=== PATIENT | female | born 1965 | race Two or more races ===

== ENCOUNTER 2021-11-02 09:34 | Emergency (ER) | payer OTHER ==
[~2021-11-02] VITALS: Ht 167.6 cm; Wt 88.2 kg
[2021-11-02 10:04] VITALS: BP 119/82
[2021-11-02] MEDS ORDERED: IBUPROFEN 800 MG TAB PO ONE (11:15)
[2021-11-02] MEDS ORDERED: TRIA0.1O TOP (11:15)
[2021-11-02] MEDS ORDERED: TRAM-297 PO (11:15)
== END 2021-11-02 11:27 | disposition home or self-care (01) ==
LOC: ER 09:34
DX: M72.2 Plantar fascial fibromatosis (principal)
CPT/HCPCS: 73630